=== PATIENT | female | born 1960 | race Caucasian/White ===

== ENCOUNTER → 2016-11-16 | Day surgery (SDC) | payer OTHER ==
--- NOTE | 2016-11-15 19:51 | MH ---
cc: ZION ABBASI M.D. DATE OF ADMISSION: 11/16/2016 HISTORY OF PRESENT ILLNESS: The patient is a 56-year-old white female 1, para 1, menopausal at age 55. She is not on hormone therapy. She reported to us in September of 2016 after over a year without seeing us. She had had an ultrasound last year as ordered by her urologist due to some hematuria that did find bilateral ovarian masses; however, the patient did not followup until September of 2016. She does not report any pain from the masses. She has no gynecologic complaints. We went ahead and performed an ultrasound on her, which indeed confirmed bilateral ovarian cystic masses. Also a small probable polypoid type lesion in the uterine cavity. I reviewed with the patient the recommendations of having the tubes and ovaries removed due to the presence of these persistent ovarian cysts and their rather large size to prevent ovarian torsion and to have definitive tissue diagnosis and she would like to proceed. I also recommended we take a look inside the uterine cavity with a hysteroscopy to remove any of the polypoid lesions as evidenced on ultrasound. The patient is aware of the risks of the surgery which include but are not limited to infection, bleeding, damage to internal organs requiring repair such as damage to the pelvic vasculature, the ureter, the bowel and bladder and the patient desires to proceed. PAST MEDICAL HISTORY: The past medical history on the patient is: 1. Renal lithiasis. 2. Anxiety. PAST SURGICAL HISTORY: Tonsillectomy. MEDICATIONS: Medications currently are Wellbutrin ALLERGIES TO MEDICATIONS: NONE. SOCIAL HISTORY: No tobacco, alcohol or drug use. 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 FAMILY HISTORY: Family history is diabetes, bone cancer, breast cancer, hypertension. GYNECOLOGIC HISTORY: No abnormal Pap. No history of STDs. OBSTETRICAL HISTORY: Normal spontaneous vaginal delivery x1. PHYSICAL EXAMINATION: WEIGHT: On physical exam, her weight is 189. GENERAL: 5 feet 4. VITAL SIGNS: Blood pressure 120/80, pulse 70. BREASTS: Without masses, nodes or discharge. CHEST: Clear to auscultation bilaterally. CARDIAC: A regular rate and rhythm without murmurs, rubs or gallops. ABDOMEN: The abdomen is slightly obese, soft, nontender and nondistended. No hepatosplenomegaly. No costovertebral angle tenderness. No hernias noted. LABORATORY DATA: Laboratory values on the patient include the ultrasound that I already discussed. She has a Pap smear from 2015, which is normal. ASSESSMENT: Postmenopausal bilateral ovarian cysts persistent for over a year and a probable polyp in the endometrium. PLAN: The plan will be for a laparoscopic bilateral salpingo-oophorectomy and dilatation and curettage with hysteroscopy. MD EDILSON Perrin/JCC /7:09 PM /7:40 PM
[~2016-11-16] VITALS: Ht 162.6 cm; Wt 88.2 kg
[~2016-11-16] MED LIST: ACETAMINOPHEN 1000 MG/100 ML VIAL IV ONE; BUPIVACAINE HCL PF 0.5% 30 ML VIAL ONE; BUPIVACAINE/EPINEPHRINE 0.25% PF 30 ML VIAL ONE; BUPR300T PO; CITRTAB16 PO; DEXAMETHASONE SOD PHOS 4 MG/ML VIAL ONE; DO NOT ADM ANY ANTICOAGULANT DRUGS XX PRN; FAMOTIDINE 20 MG/2 ML VIAL ONE; INSULIN HUMAN REGULAR 1,000 UNITS/10 ML VIAL SQ PRN; KETOROLAC TROMETHAMINE 30 MG/ML (IVP) VIAL IV PUSH ONE; KETOROLAC TROMETHAMINE 60 MG/2 ML (IM) VIAL IM ONE; LACTATED RINGER'S 1000 ML INJ 1,000 ML IV ONE; LACTATED RINGER'S 1000 ML IV SCH; METOPROLOL TARTRATE 25 MG TAB PO PRN; MIDAZOLAM HCL 2 MG/2 ML VIAL ONE; MULTTAB67 PO; NEOSTIGMINE 3 MG/3 ML SYR IV ONE; ONDANSETRON HCL 4 MG/2 ML VIAL IV PUSH ONE; ONDANSETRON HCL 4 MG/2 ML VIAL IV PUSH PRN; PHENYLEPH/NS 1000 MCG/10 ML SYR IV ONE; PROPOFOL 200 MG/20 ML AMP IV ONE; SODIUM CHLORID 0.9% 500 ML IV SCH; TURM450C PO; VITATAB11 PO; ePHEDrine/NS 50 MG/5 ML SYR IV ONE; fentaNYL CITRATE 250 MCG/5 ML AMP ONE; oxyCODONE/ACETAMINOPHEN 5 MG/325 MG TAB PO ONE
[2016-11-16 06:48] VITALS: BP 134/79; PULSE 83; RESP 18; TEMP 97.9; O2SAT 97
[2016-11-16 06:50] LABS: AUTOMATED NEUTROPHIL # 5.3 TH/MM3 (1.8-7.7); BASOPHIL # 0.1 TH/MM3 (0-0.2); BASOPHIL % 0.9 % (0.0-2.0); EOSINOPHIL # 0.3 TH/MM3 (0-0.4); EOSINOPHIL % 3.8 % (0.0-4.0); HEMATOCRIT 40.8 % (35.0-46.0); HEMO FLAGS DIFF FINAL; LYMPH % 21.7 % (9.0-44.0); LYMPHOCYTE # 1.7 TH/MM3 (1.0-4.8); MEAN CELL VOLUME 84.1 FL (80.0-100.0); MEAN CORPUSCULAR HEMOGLOBIN 28.4 PG (27.0-34.0); MEAN CORPUSCULAR HGB CONC 33.7 % (32.0-36.0); MONO % 7.3 % (0.0-8.0); NEUT % 66.3 % (16.0-70.0); PLATELET COUNT 222 TH/MM3 (150-450); RED BLOOD COUNT 4.86 MIL/MM3 (4.00-5.30); RED CELL DISTRIBUTION WIDTH 13.4 % (11.6-17.2); WHITE BLOOD COUNT 8.1 TH/MM3 (4.0-11.0)
[2016-11-16 13:00] VITALS: BP 119/72; PULSE 90; RESP 16; TEMP 96.9; O2SAT 98
--- NOTE | 2016-11-16 19:21 | EKG ---
Date Performed: 11/16/2016 Time Performed: 07:11:51 PTAGE: 56 years EKG: Sinus rhythm NORMAL ECG PREVIOUS TRACING : 10/10/2015 05.07 DOCTOR: Nicolas Denny Interpretating Date/Time 11/16/2016 19:18:28
--- NOTE | 2016-11-19 11:45 | MP ---
cc: ZION AREVALO M.D. DATE OF SURGERY 11/16/2016 PREOPERATIVE DIAGNOSIS Postmenopausal bilateral ovarian cysts and endometrial hyperplasia on ultrasound. POSTOPERATIVE DIAGNOSES 1. Postmenopausal bilateral ovarian cysts and endometrial hyperplasia on ultrasound. 2. Bilateral ovarian cysts and bilateral hydrosalpinx with endometrial polyps. PROCEDURE PERFORMED Laparoscopic bilateral salpingo-oophorectomy with lysis of adhesions and a MyoSure dilatation and curettage. OPERATING SURGEON Zion Arevalo MD ANESTHESIA General endotracheal. FINDINGS AT SURGERY Left tube and ovary, the whole complex about 10 cm x 4 cm x 4 cm and adherent to the lower left pelvic sidewall. Right tube and ovary complex also to be enlarged, measuring smaller than the left side but about 7 cm by 4 x 4. The right ovary did not really contain a cyst, the left ovary did. The right tube and ovary were adhered to the right pelvic sidewall as well. Normal-appearing uterus, externally with a small fibroid in the anterior surface. Adhesions of the adnexal complexes to some of the bowel and the cul-de-sac were noted. On hysteroscopy the uterus was noted to have some small polyps and an endocervical polyp was noted. BLOOD LOSS About 50 cc. COMPLICATIONS None. PROCEDURE IN DETAIL After proper consents were obtained, the patient was taken to the operating room where general endotracheal anesthesia was applied. She was then placed in the dorsal lithotomy position, sterilely prepped and draped and a Caraballo catheter was placed. At this time a weighted speculum was placed in the vaginal vault. The anterior lip of the cervix was grasped with a single-tooth tenaculum. The cervix was very atrophic and scarred so it was hard to dilate her; we had to take quite a long time in doing that but we were successful and we did sound the uterus to about 8 cm. We dilated to an appropriate level of about Hegar dilator #20 and then we placed the MyoSure scope using normal saline as distending medium into the uterine cavity and inspected it. It did reveal an endocervical polyp and two small endometrial polyps, one on the anterior wall and one on the posterior wall. We went ahead and performed a MyoSure curetting of those polyps removing all of the abnormal tissue noted. We then removed our instruments. I left the single-tooth tenaculum Steri-Stripped to a Hegar dilator for uterine manipulation from above, changed gloves and went to the abdomen. We placed lidocaine with epinephrine solution in the umbilicus. I made a 1-cm long incision in the umbilicus as that would be the port where we would remove the ovaries. We placed a 10/12 trocar under direct visualization without difficulty into the abdominopelvic cavity. We insufflated to an adequate a level of a pneumoperitoneum. We inspected the cavity revealing the uterus to have a small anterior wall fibroid subserosal, each of the adnexa adherent in the lower pelvic sidewalls. We went ahead and placed two 5-mm trocars in the bilateral lower quadrants midaxillary line without difficulty. We then went ahead and worked on the left tube and ovary complex. When we started we could actually identify the infundibular pelvic ligament easily and I came across that using the Enseal device. We then tried to tease out the tube and ovary from the left sidewall but it really had kind of a dense adhesion and would not pull out so easily, so we actually came across the tubal connection to the uterus. We came through that with the Enseal. We then took our round ligament using the Enseal. We then were able to free it up a little bit more and identify the ovarian uterine ligament and we came through that with the Enseal. Now that we had the blood supply, we went ahead and were more aggressive with some blunt dissection and pulling the left adnexal off of that sidewall and it did begin to free up and we could break up filmy adhesions. We then were able to lift it up off of the sidewall and identify our ureter on the left side which was well below our dissection site. We continued to tease the left tube and ovary off of the sidewall and it finally came free. We set that in the cul-de-sac. Hemostasis was noted of the surgical site. We then turned our attention to the right side. We were again able to identify. On the right side we could identify the ureter even before dissection because it was a smaller entity. We then identified the infundibulopelvic ligament way superior to the ureter. We were able to come across that nicely. The same situation occurred where the tube and ovary really would not pull off of the sidewall just yet, so we came and took the tubal connection to the uterus down with the Enseal and the round ligament. That freed it up a little bit more and we could identify the utero-ovarian ligament. We came across that. We were then able to just bluntly pull the right tube and ovary off of the sidewall a little bit easier than the left side and that came off freely. Hemostasis was noted. We then went ahead and placed the EndoCatch through 08/12 site, we moved our camera to the right lower quadrant. We were able to scoop up each of the tubes and ovaries and then we were able to bring those up through the umbilical incision. We brought that out without difficulty, sent that for permanent pathology. We replaced our camera and our trocar and insufflated her abdomen. We irrigated and made sure that we had hemostasis everywhere which we did. We reevaluated each of the ureters which were visible easily. We then went ahead and re-closed the umbilical incision used the Joseph Tao similar device, using a 0 Vicryl through the fascia of the umbilical incision. We were able to watch that, tie, cinch down and closed the fascia nicely. We then desufflated the abdomen from the 5-mm trocar ports and removed those. We closed the skin using a 4-0 Monocryl, removed our vaginal instruments. Hemostasis was assured. Counts were correct and the patient was stable to the recovery room. MD EDILSON Perrin/SSB /9:05 AM /11:26 AM
== END | disposition home or self-care (01) ==
LOC: HSDC 05:58
PROVIDERS: ATTEND Obstetrics & Gynecology
DX: D27.1 Benign neoplasm of left ovary (principal); D27.0 Benign neoplasm of right ovary; N70.11 Chronic salpingitis; N84.0 Polyp of corpus uteri; Z78.0 Asymptomatic menopausal state; Z01.810 Encounter for preprocedural cardiovascular examination
CPT/HCPCS: 85025; 88305; 88307; 93005; J0131; J1100; J1885; J2250; J2370; J2405; J2710; J3010; J7120

== ENCOUNTER → 2017-02-22 | Day surgery (SDC) | payer OTHER ==
[~2017-02-22] MED LIST changes: -ACETAMINOPHEN 1000 MG/100 ML VIAL IV ONE; -BUPIVACAINE HCL PF 0.5% 30 ML VIAL ONE; -BUPIVACAINE/EPINEPHRINE 0.25% PF 30 ML VIAL ONE; -DEXAMETHASONE SOD PHOS 4 MG/ML VIAL ONE; -DO NOT ADM ANY ANTICOAGULANT DRUGS XX PRN; -FAMOTIDINE 20 MG/2 ML VIAL ONE; -INSULIN HUMAN REGULAR 1,000 UNITS/10 ML VIAL SQ PRN; -KETOROLAC TROMETHAMINE 30 MG/ML (IVP) VIAL IV PUSH ONE; -KETOROLAC TROMETHAMINE 60 MG/2 ML (IM) VIAL IM ONE; -LACTATED RINGER'S 1000 ML INJ 1,000 ML IV ONE; +LACTATED RINGER'S 1000 ML INJ 1,000 ML ONE; -LACTATED RINGER'S 1000 ML IV SCH; -METOPROLOL TARTRATE 25 MG TAB PO PRN; -MIDAZOLAM HCL 2 MG/2 ML VIAL ONE; -NEOSTIGMINE 3 MG/3 ML SYR IV ONE; -ONDANSETRON HCL 4 MG/2 ML VIAL IV PUSH ONE; -ONDANSETRON HCL 4 MG/2 ML VIAL IV PUSH PRN; -PHENYLEPH/NS 1000 MCG/10 ML SYR IV ONE; -PROPOFOL 200 MG/20 ML AMP IV ONE; +PROPOFOL 500 MG/50 ML BTL IV ONE; -SODIUM CHLORID 0.9% 500 ML IV SCH; -ePHEDrine/NS 50 MG/5 ML SYR IV ONE; -fentaNYL CITRATE 250 MCG/5 ML AMP ONE; -oxyCODONE/ACETAMINOPHEN 5 MG/325 MG TAB PO ONE
--- NOTE | 2017-02-22 11:28 | GIPROC ---
[facility] [address] [place], [address] COLONOSCOPY PROCEDURE REPORT EXAM DATE: 02/22/2017 PATIENT NAME: Chelle Avelar MR #: [id number] BIRTHDATE: 1960 ENDOSCOPIST: Leslie Julien MD ORDER #: [id number] [facility] CONSULTANT: Michelle Maldonado RN STATUS: outpatient INDICATIONS: The patient is a 56 yr old female here for a colonoscopy due to average risk patient for colon cancer PROCEDURE PERFORMED: Colonoscopy with biopsy MEDICATIONS: None and Per Anesthesia. PREP QUALITY: fair ESTIMATED BLOOD LOSS: None CONSENT: The patient understands the risks and benefits of the procedure and understands that these risks include, but are not limited to: sedation, allergic reaction, infection, perforation and/or bleeding. Alternative means of evaluation and treatment include, among others: physical exam, x-rays, and/or surgical intervention. The patient elects to proceed with this endoscopic procedure. medical equipment was checked for proper function. Hand hygiene and appropriate measures for infection prevention was taken. After the risks, benefits and alternatives of the procedure were thoroughly explained, Informed consent was verified, confirmed and timeout was successfully executed by the treatment team. A digital exam revealed external hemorrhoids The EC-2990Li ([id number]), EC-3890Li ([id number]), and EC-3490Li ([id number]) endoscope was introduced through the anus and advanced to the cecum, which was identified by both the appendix and ileocecal valve. The instrument was then slowly withdrawn as the colon was fully examined. COLON FINDINGS: Diminutive polyp sigmoid-biopsy diverticulosis sigmoid,descending. Retroflexed views revealed internal hemorrhoids and Retroflexed views revealed small internal hemorrhoids The scope was then completely withdrawn from the patient and the procedure terminated. PROCEDURE WITHDRAWAL TIME:6minutes ADVERSE EVENTS: There were no complications. IMPRESSIONS: 1. Diminutive polyp sigmoid-biopsy diverticulosis sigmoid,descending 2. Retroflexed views revealed internal hemorrhoids 3. Retroflexed views revealed small internal hemorrhoids 4. Revealed external hemorrhoids RECOMMENDATIONS: 1. Await biopsy results. Biopsy results will not be ready for 7-10 days. If you don't hear from us in two weeks, call our office for results. 2. Avoid NSAIDS and Aspirin 3. Yearly rectal exams RECALL: Colonoscopy, pending biopsy results Leslie Julien MD eSigned: Leslie Julien MD 02/22/2017 11:28 AM cc: Kaylee Concepcion [facility] Raysa and Esperanza Law M.D. PATIENT NAME: Chelle Avelar MR#: [id number]
== END | disposition home or self-care (01) ==
LOC: ESDC 08:57
PROVIDERS: ATTEND Internal Medicine Gastroenterology
DX: Z12.11 Encounter for screening for malignant neoplasm of colon (principal); D12.5 Benign neoplasm of sigmoid colon; K57.90 Diverticulosis of intestine, part unspecified, without perforation or abscess without bleeding; K64.8 Other hemorrhoids
CPT/HCPCS: 00810; 45380; 88305; J7120; 88307

== ENCOUNTER → 2017-08-27 | Outpatient (CLI) | payer OTHER ==
[~2017-08-27] MED LIST changes: -LACTATED RINGER'S 1000 ML INJ 1,000 ML ONE; -PROPOFOL 500 MG/50 ML BTL IV ONE
[2017-08-27 15:26] LABS: BACTERIA, URINE OCC /hpf; BLOOD, URINE NEG (NEG); COMMENT (UR) CULTURE INDICATED; CULTURE IF INDICATED CULTURE INDICATED; GLUCOSE,URINE NEG (NEG); KETONE, URINE NEG (NEG); MUCUS URINE MANY /lpf (OCC); NITRITE,URINE NEG (NEG); PH, URINE 6.5 (5.0-8.5); SQUAMOUS EPITHELIAL CELL URINE 3 /hpf (0-5); URINE COLOR YELLOW (YELLW/STRAW)
== END ==
LOC: CLAB 13:57
PROVIDERS: ATTEND Family Medicine
DX: N39.0 Urinary tract infection, site not specified (principal)
CPT/HCPCS: 81001; 87086

== ENCOUNTER → 2017-10-07 | Outpatient (CLI) | payer OTHER ==
[2017-10-07 10:28] LABS: AUTOMATED NEUTROPHIL # 4.6 TH/MM3 (1.8-7.7); BASOPHIL # 0.1 TH/MM3 (0-0.2); BASOPHIL % 1.3 % (0.0-2.0); EOSINOPHIL # 0.3 TH/MM3 (0-0.4); EOSINOPHIL % 4.6 % (0.0-4.0); HEMATOCRIT 40.6 % (35.0-46.0); HEMO FLAGS DIFF FINAL; LYMPH % 22.4 % (9.0-44.0); LYMPHOCYTE # 1.6 TH/MM3 (1.0-4.8); MEAN CELL VOLUME 86.2 FL (80.0-100.0); MEAN CORPUSCULAR HEMOGLOBIN 29.4 PG (27.0-34.0); MEAN CORPUSCULAR HGB CONC 34.1 % (32.0-36.0); MONO % 6.8 % (0.0-8.0); NEUT % 64.9 % (16.0-70.0); PLATELET COUNT 215 TH/MM3 (150-450); RED BLOOD COUNT 4.71 MIL/MM3 (4.00-5.30); RED CELL DISTRIBUTION WIDTH 13.3 % (11.6-17.2); WHITE BLOOD COUNT 7.1 TH/MM3 (4.0-11.0)
== END ==
LOC: CLAB 09:07
PROVIDERS: ATTEND Family Medicine
DX: K21.9 Gastro-esophageal reflux disease without esophagitis (principal)
CPT/HCPCS: 36415; 85025

== ENCOUNTER 2018-04-12 19:44 | Emergency (ER) | payer OTHER ==
[~2018-04-12] VITALS: Ht 162.6 cm; Wt 94.8 kg
[2018-04-12 19:53] VITALS: BP 142/67; PULSE 80; RESP 16; TEMP 98.7; O2SAT 97
--- NOTE | 2018-04-12 20:33 | RADRPT ---
EXAM DATE: 04/12/2018 8:28 PM EDT AGE/SEX: 57 years / Female INDICATIONS: Patient was moving furniture and twisted left foot wrong. Complains of left foot pain n ear metatarsals. CLINICAL DATA: This is the patient's initial encounter. Patient reports that signs and symptoms have been present for 1 day and indicates a pain score of 7/10. MEDICAL/SURGICAL HISTORY: None. None. COMPARISON: No prior exams available for comparison. FINDINGS: Bony structures are intact and in normal alignment. Osseous density is normal. Soft tissues are unre markable. No radiopaque foreign bodies seen. CONCLUSION: Negative for fracture or dislocation. Followup in 7-10 days is suggested if symptoms persist. Electronically signed by: Marcio Otero MD 04/12/2018 8:31 PM EDT
--- NOTE | 2018-04-12 20:34 | PD ---
HPI Chief Complaint: Injury Time Seen by Provider: 20:03 Travel History International Travel<30 days: No Contact w/Intl Traveler<30days: No Traveled to known affect area: No History of Present Illness HPI 57-year-old female here with left foot pain after twisting the foot while carrying a box prior to arrival. She did not fall to the ground. She reports pain over the dorsal aspect of the foot. Pain is worse with weightbearing. Denies altered sensation or weakness of the foot. Symptom severity is moderate. Alleviated with rest. PFSH Past Medical History Asthma: No Anxiety: No Depression: Yes Heart Rhythm Problems: No Cancer: No Cardiovascular Problems: No Chemotherapy: No Chest Pain: No COPD: No Cerebrovascular Accident: No Diabetes: Yes (PRE DIABETES) Patient Takes Glucophage: No Diminished Hearing: No Endocrine: No GERD: Yes Genitourinary: No Hepatitis: No Hiatal Hernia: No Immune Disorder: No Kidney Stones: Yes Musculoskeletal: No Neurologic: No Psychiatric: Yes (DEPRESSION) Reproductive: No Respiratory: No Migraines: No Radiation Therapy: No Renal Failure: No Seizures: No Sickle Cell Disease: No Sleep Apnea: No Thyroid Disease: No Ulcer: No Influenza Vaccination: No ?: Not LMP: BILAT OOPHRECTOMY Menopausal: Yes : 1 Para: 1 Miscarriage: 0 : 0 Past Surgical History Abdominal Surgery: No AICD: No Arteriovenous Shunt: No Body Medical Devices: NONE Cardiac Surgery: No Ear Surgery: No Endocrine Surgery: No Eye Surgery: No Genitourinary Surgery: Yes ( REMOVE RIGHT KIDNEY STONE, REMOVAL URETERAL STONE - [address]) Gynecologic Surgery: Yes (Roman oopherectomy) Insulin Pump: No Joint Replacement: No Oral Surgery: Yes (TONSILLECTOMY) Pacemaker: No Thoracic Surgery: No Tonsillectomy: Yes Social History Alcohol Use: No Tobacco Use: No Substance Use: No Allergies-Medications (Allergen,Severity, Reaction): Coded Allergies: *MDRO Multi-Drug Resistant Organism (Verified Adverse Reaction, Unknown, MRSA, 04/12/18) MRSA (wound) - 02/04/04 Reported Meds & Prescriptions Reported Meds & Active Scripts Active Reported Citracal Calcium+D Slow Release (Pqhofqi-Ffhxwulnc-Uftmqmh D) 600-40-500 Mg-Mg- Unit Tab 1 Tab PO DAILY Multiple Vitamin 1 Tab 1 Tab PO DAILY Vitamin B Complex (B-Complex Vitamins) 1 Tab 1 Tab PO DAILY Review of Systems Except as stated in HPI: all other systems reviewed are Neg General / Constitutional: No: Fever Eyes: No: Visual changes HENT: No: Headaches Cardiovascular: No: Chest Pain or Discomfort Respiratory: No: Shortness of Breath Gastrointestinal: No: Abdominal Pain Genitourinary: No: Dysuria Physical Exam Narrative GENERAL: Alert and well-appearing 57-year-old female SKIN: Warm and dry. HEAD: Normocephalic. Atraumatic EYES: No injection or drainage. NECK: Supple CARDIOVASCULAR: Regular rate and rhythm without murmurs, gallops, or rubs. RESPIRATORY: Breath sounds equal bilaterally. No accessory muscle use. GASTROINTESTINAL: Abdomen soft, non-tender, nondistended. MUSCULOSKELETAL: No cyanosis. Left lower extremity: Tenderness over the dorsal aspect of the foot with mild swelling. No obvious deformity. The ankle is nontender. She can freely wiggle the toes. Palpable DP pulse. Sensation intact. Cap refill intact. Data Data Last Documented VS Vital Signs Date Time Temp Pulse Resp B/P (MAP) Pulse Ox O2 Delivery O2 Flow Rate FiO2 04/12/18 19:53 98.7 80 16 142/67 (92) 97 Orders Orders Foot, Complete ([id number]) (04/12/18 ) Tone Bandage (04/12/18 20:47) Crutches (04/12/18 20:47) MDM Medical Decision Making Medical Screen Exam Complete: Yes Emergency Medical Condition: Yes Differential Diagnosis Metatarsal fracture, Lisfranc injury, midfoot sprain, contusion Narrative Course 57-year-old female with left foot injury. Extremities neurovascularly intact. Diagnosis Primary Impression: Foot sprain Qualified Codes: S93.602A - Unspecified sprain of left foot, initial encounter Referrals: Primary Care Physician Additional Instructions: Tone wrap and crutches as directed. Ice and elevate the extremity. Follow-up with your primary doctor. If you have continued pain he may need a repeat x-ray. Scripts Ibuprofen (Ibuprofen) 800 Mg Tab 800 MG PO Q6HR Y for PAIN, #40 TAB 0 Refills Prov: Cathi Xie 04/12/18 Disposition: 01 DISCHARGE HOME Condition: Stable Cathi Xie Apr 12, 2018 20:34
[2018-04-12] MEDS ORDERED: IBUP1TAB7 PO (20:49)
== END 2018-04-12 21:02 | disposition home or self-care (01) ==
LOC: PHEFT 19:44
DX: S93.602A Unspecified sprain of left foot, initial encounter (principal); X50.1XXA Overexertion from prolonged static or awkward postures, initial encounter; F32.9 Major depressive disorder, single episode, unspecified; E11.9 Type 2 diabetes mellitus without complications; K21.9 Gastro-esophageal reflux disease without esophagitis; Z87.442 Personal history of urinary calculi
CPT/HCPCS: 73630; 99283; E0113